=== PATIENT | male | born 1995 | race Caucasian/White ===

== ENCOUNTER 2019-01-13 15:19 | Emergency (ER) | payer OTHER ==
[~2019-01-13] VITALS: Ht 180.3 cm; Wt 95.3 kg
[2019-01-13 16:52] VITALS: BP 136/72
[2019-01-13 16:55] LABS: Urine WBC None Seen /hpf (0 - 3)
[2019-01-13 17:15] LABS: Urine Bacteria NONE SEEN /hpf (None Seen); Urine Blood Negative /uL (Negative)
[2019-01-13] MEDS ORDERED: cefTRIAXone SOD 1,000 MG VL IM ONE (17:30)
[2019-01-13] MEDS ORDERED: AZITHROMYCIN 250 MG TAB PO ONE (17:30)
== END 2019-01-13 18:10 | disposition home or self-care (01) ==
LOC: ER 15:26
DX: N48.89 Other specified disorders of penis (principal); R30.0 Dysuria; J45.909 Unspecified asthma, uncomplicated
CPT/HCPCS: 81001; 96372; 99283; J0696

== ENCOUNTER 2019-09-12 21:26 | Emergency (ER) | payer OTHER ==
[~2019-09-12] VITALS: Ht 180.3 cm; Wt 88.0 kg
[2019-09-12 21:34] VITALS: BP 115/86
== END 2019-09-12 22:45 | disposition left against medical advice (07) ==
LOC: ER 21:27
DX: R07.89 Other chest pain (principal); Z53.21 Procedure and treatment not carried out due to patient leaving prior to being seen by health care provider
CPT/HCPCS: 71045; 93005

== ENCOUNTER 2021-02-10 15:10 | Emergency (ER) | payer OTHER ==
[~2021-02-10] VITALS: Ht 188 cm; Wt 104.3 kg
[2021-02-10 17:42] LABS: Urine Bacteria FEW /hpf (None Seen); Urine Blood Negative /uL (Negative); Urine Mucus FEW (None Seen); Urine Specific Gravity 1.021 (1.001-1.035); Urine WBC <1 /hpf (0 - 3)
[2021-02-10 17:50] VITALS: BP 130/72
== END 2021-02-10 18:00 | disposition home or self-care (01) ==
LOC: ER 15:13
DX: B37.42 Candidal balanitis (principal)
CPT/HCPCS: 81001

== ENCOUNTER 2021-02-18 18:30 | Emergency (ER) | payer OTHER ==
[~2021-02-18] VITALS: Ht 182.9 cm; Wt 104.3 kg
[2021-02-18 18:31] VITALS: BP 144/75
== END 2021-02-18 20:08 | disposition left against medical advice (07) ==
LOC: ER 18:30
DX: N48.89 Other specified disorders of penis (principal); J45.909 Unspecified asthma, uncomplicated; Z53.29 Procedure and treatment not carried out because of patient's decision for other reasons

== ENCOUNTER 2022-04-27 14:15 | Emergency (ER) | payer OTHER ==
[~2022-04-27] VITALS: Ht 185.4 cm; Wt 113.6 kg
[2022-04-27 15:51] VITALS: BP 124/82
[2022-04-27] MEDS ORDERED: KETOROLAC TROMETH 60MG/2ML VIAL IM ONE (16:15)
[2022-04-27] MEDS ORDERED: PROM1SOL4 PO (16:22)
[2022-04-27] MEDS ORDERED: PRED20TA2 PO (16:22)
== END 2022-04-27 16:30 | disposition home or self-care (01) ==
LOC: ER 14:15
DX: J45.909 Unspecified asthma, uncomplicated (principal)
CPT/HCPCS: 71046

== ENCOUNTER 2022-11-07 05:32 | Emergency (ER) | payer OTHER ==
[~2022-11-07] VITALS: Ht 185.4 cm; Wt 240.0 kg
[~2022-11-07 05:32] MED LIST: PRED20TA2 PO; PROM1SOL4 PO
[2022-11-07 07:25] VITALS: BP 126/79
[2022-11-07] MEDS ORDERED: DexAMETHasone SOD PHOS 10MG/1ML VIAL INJ IM ONE (07:30)
[2022-11-07] MEDS ORDERED: ALBUTEROL SULF 2.5 MG/0.5ML(0.5%) NEB SOLN NEB ONE (07:30)
[2022-11-07] MEDS ORDERED: IPRATROPIUM BROM 0.5 MG/2.5ML INH SOL NEB ONE (07:30)
[2022-11-07] MEDS ORDERED: ALBUTEROL MEDNEB 2.5 mg/3ml NEB ONE (07:32)
[2022-11-07] MEDS ORDERED: PRED20TA2 PO (07:37)
[2022-11-07] MEDS ORDERED: PROM1SOL4 PO (07:37)
[2022-11-07] MEDS ORDERED: AZITTAB PO (08:12)
== END 2022-11-07 08:23 | disposition home or self-care (01) ==
LOC: ER 05:32
DX: J45.901 Unspecified asthma with (acute) exacerbation (principal); Z20.822 Contact with and (suspected) exposure to COVID-19
CPT/HCPCS: 36415; 71045; 87426; 96372; 99284; J1100